=== PATIENT | male | born 1990 | race Caucasian/White ===

== ENCOUNTER 2017-03-26 05:32 | Outpatient (CLI) | payer OTHER, BC ==
[~2017-03-26] VITALS: Ht 180.3 cm; Wt 117.9 kg
[2017-03-26] MEDS ORDERED: OMEP40CA36 PO (10:29)
[2017-05-25] MEDS ORDERED: DILT120C53 PO (04:35)
[2017-05-25] MEDS ORDERED: HYDR50CA PO (05:57)
== END 2017-03-26 10:46 ==
LOC: PREOP 05:32
PROVIDERS: ATTEND Surgery
DX: Z01.818 Encounter for other preprocedural examination (principal); R19.7 Diarrhea, unspecified

== ENCOUNTER 2017-04-13 19:16 | Emergency (ER) | payer BC, OTHER ==
[~2017-04-13] VITALS: Ht 177.8 cm; Wt 76.2 kg
[~2017-04-13 19:16] MED LIST: OMEP40CA36 PO
--- OUTSIDE RECORDS SUMMARY | 2017-04-13 19:22 | XMS REPORT ---
Author Author SHANDA MELO Organization [facility] Address [address] [place] [address] Care Team Providers Care Case Briefer Name Role Phone MELOSHANDA Ortiz Unavailable PROBLEMS Unknown Problems ALLERGIES Substance Reaction Event Type Date Status N.K.D.A. Unknown Non Drug Allergy Jul, Unknown SOCIAL HISTORY No smoking Hx information available PLAN OF CARE Activity Details Follow Up prn Reason: VITAL SIGNS Height 71 in 2016-08-10 Weight 272.6 lbs 2016-08-10 Temperature 98.2 degrees Fahrenheit 2016-08-10 Heart Rate 88 bpm 2016-08-10 Respiratory Rate 20 2016-08-10 BMI 38.02 kg/m2 2016-08-10 Blood pressure systolic 128 mmHg 2016-08-10 Blood pressure diastolic 82 mmHg 2016-08-10 MEDICATIONS Medication Instructions Dosage Frequency Start Date End Date Duration Status Cipro 500 MG Orally Twice a day 1 tablet 12h Active Omeprazole 20 MG Orally Once a day 2 capsules 24h Active RESULTS Name Result Date Reference Range GC/CHLAM URINE (STATE) 2016-08-10 CHLAMYDIA negative GC negative PROCEDURES Procedure Date Ordered Related Diagnosis Body Site No Charge Aug 10, 2016 Office Visit, New Pt., Level 3 Aug 10, 2016 IMMUNIZATIONS No Known Immunizations
--- OUTSIDE RECORDS SUMMARY | 2017-04-13 19:23 | XMS REPORT | Continuity of Care Document ---
Author Author [facility] Organization [facility] Address Unknown Phone Unavailable Allergies Active Description Code Type Severity Reaction Onset Reported/Identified Relationship to Patient Clinical Status Yes No Known Drug Allergies [id number] Drug Allergy Unknown N/ A 09/11/2015 Medications Problems Date Dx Coded Attending Type Code Diagnosis Diagnosed By 09/11/2015 ANGEL SAWYER APRN Ot S06.0X0A CONCUSSION WITHOUT LOSS OF CONSCIOUSNESS 09/11/2015 ANGEL SAWYER APRN Ot W20.8XXA OTH CAUSE OF STRIKE BY THROWN, PROJECTED 09/11/2015 ANGEL SAWYER APRN Ot Y99.0 CIVILIAN ACTIVITY DONE FOR INCOME OR PAY 03/26/2017 JACOB CRONIN, CHRISTINE Miller Ot R19.7 DIARRHEA, UNSPECIFIED 03/26/2017 CHRISTINE JAMES MD Ot Z01.818 ENCOUNTER FOR OTHER PREPROCEDURAL EXAMIN 03/27/2017 CHRISTINE JAMES MD Ot R19.7 DIARRHEA, UNSPECIFIED 03/27/2017 CHRISTINE JAMES MD Ot Z01.818 ENCOUNTER FOR OTHER PREPROCEDURAL EXAMIN Procedures Results Encounters ACCT No. Visit Date/Time Discharge Status Pt. Type Provider Facility Loc./Unit Complaint [id number] 03/31/2017 08:45:00 2016 23:59:59 CLS Preadmit CHRISTINE JAMES MD [facility] ENDO DIARRHEA [id number] 03/26/2017 05:32:00 2016 10:46:00 DIS Outpatient CHRISTINE JAMES MD [facility] PREOP COLONOSCOPY [id number] 09/11/2015 12:05:00 2015 13:13:00 DIS Emergency ANGEL SAWYER APRN [facility] ER HEAD INJ AT WORK
[2017-04-13] MEDS ORDERED: CITA10TA7 (19:29)
[2017-04-13] MEDS ORDERED: METO-387 (19:29)
[2017-04-13] MEDS ORDERED: ANTACID SUSP 30 ML UDC (MYLANTA) PO ONE (19:30)
[2017-04-13] MEDS ORDERED: LIDOCAINE 2% VISCOUS 15 ML UDC PO ONE (19:30)
[2017-04-13 19:44] LABS: BASOPHILS % (AUTO) 0 % (0-10); EOSINOPHILS # (AUTO) 0.1 10^3/uL (0.0-0.3); EOSINOPHILS % (AUTO) 1 % (0-10); LYMPHOCYTES # (AUTO) 3.4 X 10^3 (1.0-4.0); LYMPHOCYTES % (AUTO) 43 % (12-44); MEAN CORPUSCULAR HEMOGLOBIN 30 PG (25-34); MEAN CORPUSCULAR HGB CONC 36 G/DL (32-36); MEAN CORPUSCULAR VOLUME 83 FL (80-99); MEAN PLATELET VOLUME 10.1 FL (7.4-10.4); MONOCYTES # (AUTO) 0.6 X 10^3 (0.0-1.0); MONOCYTES % (AUTO) 8 % (0-12); NEUTROPHILS # (AUTO) 3.8 X 10^3 (1.8-7.8); NEUTROPHILS % (AUTO) 48 % (42-75); PLATELET COUNT 270 10^3/uL (130-400); RED BLOOD COUNT 5.49 10^6/uL (4.35-5.85); RED CELL DISTRIBUTION WIDTH 12.4 % (10.0-14.5); WHITE BLOOD COUNT 7.9 10^3/uL (4.3-11.0)
--- NOTE | 2017-04-13 19:44 | ED Chest Pain ---
General Chief Complaint: Chest Wall/Rib Pain Stated Complaint: CHEST PRESSURE Nursing Triage Note: intermittant left chestwall pain since friday. Nursing Sepsis Screen: No Definite Risk Source: patient Exam Limitations: no limitations History of Present Illness Time seen by provider: 19:33 Initial Comments Here with report of left chest wall pain for the last 2-3 days. Worse after eating. Reports that he has been seen by his physician and he has stress test set up for next week. He is worried about hiatal hernia. Pain seems to be worse with activity and eating and better with rest and not thinking about it. Denies nausea or vomiting. Timing/Duration: 3-4 days Severity/Quality: moderate, aching Location: central Radiation: no radiation Activities at Onset: none Prior CP/Workup: no prior chest pain Modifying Factors: improves with antacids, worse with eating, improves with rest ASA po COREMAKER BENCH: No NTG SL COREMAKER BENCH: No Associated Symptoms: No abdominal pain, No back pain, No nausea/vomiting, No shortness of breath, No weakness Allergies and Home Medications Allergies Coded Allergies: No Known Drug Allergies (Unverified , 09/11/15) Home Medications Citalopram Hydrobromide 10 Mg Tablet, (Reported) Metoprolol Succinate 25 Mg Tab.er.24h, (Reported) Omeprazole 40 Mg Capsule.dr, 40 MG PO DAILY, (Reported) Review of Systems Constitutional: see HPI, No chills, No fever EENTM: No Symptoms Reported Respiratory: No Symptoms Reported Cardiovascular: See HPI Gastrointestinal: See HPI, Denies Nausea, Denies Vomiting Genitourinary: No Symptoms Reported Musculoskeletal: no symptoms reported Skin: no symptoms reported All Other Systems Reviewed Negative Unless Noted: Yes Past Lbfxnnz-Iopegn-Szazfl Hx Patient Social History Alcohol Use: Occasionally Uses Number of Drinks Today: 0 Alcohol Beverage of Choice: Beer Recreational Drug Use: No Smoking Status: Never a Smoker 2nd Hand Smoke Exposure: Yes Recent Foreign Travel: No Contact w/Someone Who Travel: No Recent Infectious Disease Expo: No Recent Hopitalizations: No Immunizations Up To Date Tetanus Booster (TDap): Unknown Seasonal Allergies Seasonal Allergies: No Surgeries History of Surgeries: No Respiratory History of Respiratory Disorde: No Cardiovascular History of Cardiac Disorders: Yes Cardiac Disorders: Hypertension Neurological History of Neurological Disord: No Reproductive System Hx Reproductive Disorders: No Genitourinary History of Genitourinary Disor: No Gastrointestinal History of Gastrointestinal Di: Yes Gastrointestinal Disorders: Gastroesophageal Reflux, Hemorrhoids Musculoskeletal History of Musculoskeletal Dis: No Endocrine History of Endocrine Disorders: No HEENT History of HEENT Disorders: No Cancer History of Cancer: No Psychosocial History of Psychiatric Problem: No Integumentary History of Skin or Integumenta: No Blood Transfusions History of Blood Disorders: No Reviewed Nursing Assessment Reviewed/Agree w Nursing PMH: Yes Family Medical History Significant Family History: No Pertinent Family Hx Physical Exam Vital Signs Vital Sign - Last 12Hours 04/13/17 19:29 Temp 97.1 Pulse 88 Resp 18 B/P (MAP) 140/110 Pulse Ox 99 O2 Delivery Room Air Capillary Refill : Less Than 3 Seconds General Appearance: No Apparent Distress, WD/WN Neck: Non Tender, Supple Respiratory: Lungs Clear, No Respiratory Distress Cardiovascular: Regular Rate, Rhythm, No Murmur Gastrointestinal: Normal Bowel Sounds, Non Tender, Soft Extremity: Normal Range of Motion, Non Tender, No Calf Tenderness, No Pedal Edema Neurologic/Psychiatric: Alert, Oriented x3 Skin: Normal Color, Warm/Dry Progress/Results/Core Measures Results/Orders Lab Results Laboratory Tests Test 04/13/17 19:35 Range/Units White Blood Count 7.9 4.3-11.0 10^3/uL Red Blood Count 5.49 4.35-5.85 10^6/uL Hemoglobin 16.6 13.3-17.7 G/DL Hematocrit 46 40-54 % Mean Corpuscular Volume 83 80-99 FL Mean Corpuscular Hemoglobin 30 25-34 PG Mean Corpuscular Hemoglobin Concent 36 32-36 G/DL Red Cell Distribution Width 12.4 10.0-14.5 % Platelet Count 270 130-400 10^3/uL Mean Platelet Volume 10.1 7.4-10.4 FL Neutrophils (%) (Auto) 48 42-75 % Lymphocytes (%) (Auto) 43 12-44 % Monocytes (%) (Auto) 8 0-12 % Eosinophils (%) (Auto) 1 0-10 % Basophils (%) (Auto) 0 0-10 % Neutrophils # (Auto) 3.8 1.8-7.8 X 10^3 Lymphocytes # (Auto) 3.4 1.0-4.0 X 10^3 Monocytes # (Auto) 0.6 0.0-1.0 X 10^3 Eosinophils # (Auto) 0.1 0.0-0.3 10^3/uL Basophils # (Auto) 0.0 0.0-0.1 10^3/uL Sodium Level 139 135-145 MMOL/L Potassium Level 4.0 3.6-5.0 MMOL/L Chloride Level 106 98-107 MMOL/L Carbon Dioxide Level 22 21-32 MMOL/L Anion Gap 11 5-14 MMOL/L Blood Urea Nitrogen 13 7-18 MG/DL Creatinine 1.20 0.60-1.30 MG/DL Estimat Glomerular Filtration Rate > 60 BUN/Creatinine Ratio 11 Glucose Level 108 H 70-105 MG/DL Calcium Level 9.4 8.5-10.1 MG/DL Total Bilirubin 0.7 0.1-1.0 MG/DL Aspartate Amino Transf (AST/SGOT) 20 5-34 U/L Alanine Aminotransferase (ALT/SGPT) 31 0-55 U/L Alkaline Phosphatase 64 40-136 U/L Troponin I < 0.30 <0.30 NG/ML Total Protein 8.0 6.4-8.2 GM/DL Albumin 4.7 H 3.2-4.5 GM/DL My Orders Orders - MINNIE CENTENO MD Cbc With Automated Diff (04/13/17 19:29) Comprehensive Metabolic Panel (04/13/17 19:29) Troponin I (04/13/17 19:29) Ekg Tracing (04/13/17 19:29) Chest Pa/Lat (2 View) (04/13/17 19:29) Lidocaine 2% Viscous 15 Ml (Xylocaine Vi (04/13/17 19:30) Antacid Suspension (Mylanta Suspension (04/13/17 19:30) Medications Given in ED Current Medications Medications Dose Ordered Sig/Vira Route Start Time Stop Time Status Last Admin Dose Admin Al Hydrox/Mg Hydrox/Simethicone 30 ml ONCE ONCE PO 04/13/17 19:30 04/13/17 19:31 DC 04/13/17 19:36 30 ML Lidocaine HCl 15 ml ONCE ONCE PO 04/13/17 19:30 04/13/17 19:31 DC 04/13/17 19:36 15 ML Vital Signs/I&O Vital Sign - Last 12Hours 04/13/17 19:29 Temp 97.1 Pulse 88 Resp 18 B/P (MAP) 140/110 Pulse Ox 99 O2 Delivery Room Air Blood Pressure Mean: 120 Progress Note : Progress Note Seen and evaluated. Labs, EKG and chest x-ray ordered. GI cocktail given. Monitor patient. 2104: No acute findings. Discharged home with return precautions. Patient verbalize understanding instructions and agreement with plan. ECG Initial ECG Impression Date: Apr 13, 2017 Initial ECG Impression Time: 19:35 Initial ECG Rate: 95 Initial ECG Rhythm: Normal Sinus Comment Sinus rhythm with normal axis. No evidence of ST elevation MA. No previous available for comparison. Interpreted by me. Diagnostic Imaging Diagonstic Imaging: Xray Plain Films/CT/US/NM/MRI: chest Comments [facility]IA [facility]. [place], [place] NAME: EVONEN PRABHAKAR [facility] REC#: [id number] PT STATUS: REG ER : 1990 PHYSICIAN: MINNIE CENTENO MD ADMIT DATE: 04/13/17/ER Draft Date of Exam:04/13/17 CHEST PA/LAT (2 VIEW) EXAMINATION: Chest (PA and lateral). CLINICAL INDICATION: 26-year-old male, left-sided chest wall pressure. COMPARISON: None. FINDINGS: Heart size and mediastinal contours are unremarkable. There is no identified pneumothorax. There is no pleural effusion. There is no identified focal airspace consolidation. There is no identified displaced rib fracture. IMPRESSION: No identified acute cardiopulmonary abnormality. Dictated on workstation # [id number] Dict: 04/13/172036 Trans: 04/13/172038 [facility] [id number] Interpreted by: TURNER HANSEN MD Electronically signed by: Departure Impression Impression: Primary Impression: Chest wall pain Additional Impression: Acid reflux Qualified Codes: K21.9 - Gastro-esophageal reflux disease without esophagitis Disposition: HOME, SELF-CARE Condition: Improved Departure-Patient Inst. Referrals: MICHEAL TAMEZ MD (PCP/Family) Primary Care Physician Patient Instructions: Acid Reflux (Gastroesophageal Reflux Disease) in Adults, Chest Pain (DC) Add. Discharge Instructions: All discharge instructions reviewed with patient and/or family. Voiced understanding. Tomorrow or the next day for recheck and further evaluation. You will need to complete the outpatient stress test that has been ordered by your primary care doctor. Discussed with your doctor about your medicines for your stomach. Return for worse pain, fever, vomiting, weakness, breathing problems or other concerns as needed.. Drink plenty fluids and eat a light diet. Copy Copies To 1: MICHEAL TAMEZ MD, TIMOTHY D MD Apr 13, 2017 19:44
[2017-04-13 20:07] LABS: ALANINE AMINOTRANSFERASE 31 U/L (0-55); ALBUMIN 4.7 GM/DL (3.2-4.5); ANION GAP 11 MMOL/L (5-14); ASPARTATE AMINO TRANSFERASE 20 U/L (5-34); BILIRUBIN,TOTAL 0.7 MG/DL (0.1-1.0); BLOOD UREA NITROGEN 13 MG/DL (7-18); BUN/CREATININE RATIO 11; CALCIUM 9.4 MG/DL (8.5-10.1); CARBON DIOXIDE 22 MMOL/L (21-32); CHLORIDE 106 MMOL/L (98-107); GFR ESTIMATED > 60; GLUCOSE 108 MG/DL (70-105); SODIUM 139 MMOL/L (135-145)
[2017-04-13 20:13] LABS: TROPONIN I < 0.30 NG/ML (<0.30)
--- NOTE | 2017-04-13 20:40 | Diagnostic Imaging Report ---
EXAMINATION: Chest (PA and lateral). CLINICAL INDICATION: 26-year-old male, left-sided chest wall pressure. COMPARISON: None. FINDINGS: Heart size and mediastinal contours are unremarkable. There is no identified pneumothorax. There is no pleural effusion. There is no identified focal airspace consolidation. There is no identified displaced rib fracture. IMPRESSION: No identified acute cardiopulmonary abnormality. Dictated by: Dictated on workstation # [id number]
[2017-04-13 21:18] VITALS: BP 141/94
[2017-05-25] MEDS ORDERED: DILT120C53 PO (04:35)
[2017-05-25] MEDS ORDERED: HYDR50CA PO (05:57)
== END 2017-04-13 21:15 | disposition home or self-care (01) ==
LOC: EDUNIT# 19:16 → ER 19:19
DX: K21.9 Gastro-esophageal reflux disease without esophagitis (principal); I10 Essential (primary) hypertension; Z87.19 Personal history of other diseases of the digestive system
CPT/HCPCS: 36415; 71020; 80053; 84484; 85025; 93005